=== PATIENT | female | born 1990 | race Caucasian/White ===

== ENCOUNTER 2017-02-17 20:24 | Emergency (ER) | payer BC ==
[~2017-02-17] VITALS: Ht 182.9 cm; Wt 100.2 kg
[2017-02-17 20:40] VITALS: BP 105/68
--- NOTE | 2017-02-17 21:05 | PHYS DOC ---
General Chief Complaint: POST-OP PROBLEM Stated Complaint: CYST Time Seen by MD: 20:39 Source: patient Exam Limitations: no limitations Problems: History of Present Illness Initial Comments Patient is a 26-year-old female who comes to the ED complaining of pilonidal cyst pain. Patient had called the emergency department earlier and spoken with the monitor tach, she had asked if we were able to drain pilonidal cysts. On arrival patient is in obvious discomfort, she is standing she states that sitting causes more discomfort. She saw her doctor 2 days ago was started on Bactrim and has not seen any improvement. Her vital signs are stable she denies fever chills sweats or body aches. I discussed pilonidal cyst I&D, I discussed the procedure and postoperative care. After thorough discussion and informed consent the patient declines any further treatment stating that she has finals coming up and feels like dealing with postop I&D would be too much for her. Timing/Duration: other Severity: moderate Modifying Factors: worse with movement, improves with rest Associated Symptoms: other Allergies: Coded Allergies: No Known Drug Allergies (Unverified , 02/17/17) Past Medical History Medical History: no pertinent history Surgical History: no surgical history Social History Smoker: non-smoker Alcohol: none Drugs: none Review of Systems Constitutional: denies chills, denies diaphoresis, denies fever, denies malaise Respiratory: denies cough, denies shortness of breath Cardiovascular: denies chest pain, denies palpitations Gastrointestinal: denies diarrhea, denies nausea, denies vomiting Musculoskeletal: see HPI, denies joint pain, denies joint swelling, denies neck pain Skin: see HPI Psychiatric/Neurological: denies headache, denies numbness, denies paresthesia Physical Exam General Appearance: WD/WN, mild distress Neck: non-tender, supple Respiratory: normal breath sounds, no respiratory distress Back: no CVA tenderness, no vertebral tenderness, other (and moderate-sized 2 x 3 cm pilonidal cysts noted, it is warm and tender with no erythema or discharge.) Extremities: normal range of motion, non-tender, normal inspection Neurologic/Psychiatric: cat scan tech II-XII nml as tested, no motor/sensory deficits, alert, normal mood/affect, oriented x 3 Skin: normal color, warm/dry Orders, Labs, Meds Patient refuses any further treatment. I discussed signs and symptoms to monitor as well as indications for urgent return. Patient understands she can return at any time expressed agreement and understanding with treatment plan. Departure Time of Disposition: 21:03 Disposition: 01 HOME, SELF-CARE Diagnosis: pilonidal cyst Condition: GOOD Patient Instructions: Pilonidal Cyst Additional Instructions: Please review the patient education materials given by ED staff. As discussed you have chosen to defer surgical intervention at this time as you are busy with finals and like to give urine antibiotics more time to work. Continue current medications. Warm compresses 4-6 times daily. Follow-up with your doctor next week for recheck. Return to ED with new or changing symptoms. HANY KLEIN DO Feb 17, 2017 21:05
== END 2017-02-17 21:32 | disposition home or self-care (01) ==
LOC: ER 20:24
DX: L05.91 Pilonidal cyst without abscess (principal)
CPT/HCPCS: 99281